=== PATIENT | female | born 1995 ===

== ENCOUNTER 2019-10-21 06:13 | Inpatient (IN) ==
[2019-10-21] MEDS ORDERED: Famotidine 20 MG/2 ML VIAL IVP PRN (06:15)
[2019-10-21] MEDS ORDERED: Ondansetron 4 MG/2 ML VIAL IVP PRN (06:15)
[2019-10-21] MEDS ORDERED: Metoclopramide 10 MG/2 ML VIAL IVP PRN (06:15)
[2019-10-21] MEDS ORDERED: Naloxone 0.4 MG/ML INJ IVP PRN (06:15)
[2019-10-21] MEDS ORDERED: Azithromycin 500 MG in 0.9 % Sodium Chloride 250 ML IVPB ONE (06:15)
[2019-10-21] MEDS ORDERED: Oxytocin 20 units/ LR 1000 mL 20 UNIT/1,000 ML BAG IVC SCH (06:15)
[2019-10-21] MEDS ORDERED: Lidocaine 1% 20 ML MDV INFILT PRN (06:15)
[2019-10-21 06:42] LABS: Basophils % 0.1 %; Eosinophils # 0.1 K/mcL (0.0-0.6); Eosinophils % 0.6 %; Hematocrit 37.4 % (35.3-44.9); Hemoglobin 12.6 g/dL (11.5-15.4); Lymphocytes # 2.2 K/mcL (0.6-4.6); Lymphocytes % 18.8 %; Mean Corpuscular HGB Conc 33.7 g/dL (31.6-35.5); Mean Corpuscular Hemoglobin 28.4 pg (28.0-33.3); Mean Corpuscular Volume 84.4 fL (83.0-100.0); Mean Platelet Volume 12.9 fL (9.4-12.4); Monocytes # 0.9 K/mcL (0.0-1.3); Monocytes % 7.9 %; Neutrophils # 8.2 K/mcL (1.6-8.9); Platelet Count 165 K/mcL (140-400); Red Blood Count 4.43 M/mcL (3.82-4.97); Red Cell Distribution Width 14.3 % (11.5-14.5); Segmented Neutrophils % 71.6 %; White Blood Count 11.5 K/mcL (4.3-11.1)
[2019-10-21] MEDS ORDERED: EPHEDrine 50 MG/ML VIAL IVP PRN (07:11)
[2019-10-21] MEDS: Ringers Solution, Lactated 1,000 ML IVC SCH ×3 (08:10→17:17)
[2019-10-21] MEDS ORDERED: Morphine Sulfate 2 MG/ML SYRINGE IVP ONE (10:07)
[2019-10-21] MEDS ORDERED: Morphine Sulfate 2 MG/ML SYRINGE SQ ONE (10:08)
[2019-10-21 10:30] LABS: Amphetamine Screen,Urine Negative ng/mL (Cutoff=1000); Barbiturate Screen,Urine Negative ng/mL (Cutoff=200); Benzodiazepines Screen,Urine Negative ng/mL (Cutoff=200); Cannabinoid Screen,Urine Negative ng/mL (Cutoff = 50); Cocaine Screen,Urine Negative ng/mL (Cutoff= 300); Opiate Screen,Urine Negative ng/mL (Cutoff=300); Phencyclidine Screen,Urine Negative ng/mL (Cutoff=25)
[2019-10-21] MEDS: Epidural Premix (fent/bupiv) 110 ML EP SCH ×3 (12:44→21:23)
[2019-10-21] MEDS ORDERED: *HR* FentaNYL (PF) 100 MCG/2 ML VIAL ONE ×2 (16:08→18:09)
[2019-10-22] MEDS ORDERED: Oxytocin 20 units/ LR 1000 mL 20 UNIT/1,000 ML BAG IVC SCH (00:57)
[2019-10-22] MEDS ORDERED: Lanolin 7 G OINT...G. TP PRN (00:57)
[2019-10-22] MEDS ORDERED: Benzocaine/Menthol 56 GM AEROSOL SPRAY TP PRN (00:57)
[2019-10-22] MEDS ORDERED: Acetaminophen 325 MG TABLET PO PRN (00:57)
[2019-10-22] MEDS: Ibuprofen 600 MG TABLET PO PRN ×2 (01:31→21:04)
[2019-10-22] MEDS: Prenatal Vit/FA 1 EACH TABLET PO SCH (08:15)
[2019-10-22] MEDS: *HR* HYDROcodone/Acet 5/325 mg TABLET PO PRN (14:49)
[2019-10-22] MEDS ORDERED: Preparation H Ointment 57 GM TUBE TP PRN (21:47)
[2019-10-23] MEDS: *HR* HYDROcodone/Acet 5/325 mg TABLET PO PRN (00:30)
[2019-10-23] MEDS: Ibuprofen 600 MG TABLET PO PRN (04:25)
[2019-10-23] MEDS: Prenatal Vit/FA 1 EACH TABLET PO SCH (09:28)
[2019-10-23 09:42] VITALS: BP 112/83
== END 2019-10-23 13:45 | disposition home or self-care (01) | DRG 807 ==
LOC: 1NENULAB 06:13 → 1NENUOBS 10-22 00:54
PROVIDERS: ADMIT Obstetrics & Gynecology; ATTEND Obstetrics & Gynecology